=== PATIENT | male | born 1945 | race Caucasian/White ===

== ENCOUNTER 2018-11-19 06:00 | Day surgery (SDC) | payer MEDICARE, OTHER ==
[2018-11-18 08:47] LABS: BASOPHILS % (AUTO) 0.8 % (0-1); EOSINOPHILS # (AUTO) 0.1 X10'3 (0-0.9); EOSINOPHILS % (AUTO) 2.4 % (0-6); HEMATOCRIT 45.7 % (42.0-52.0); HEMOGLOBIN 15.2 g/dl (14.0-17.9); LYMPHOCYTES % (AUTO) 21.4 % (21-51); MEAN CORPUSCULAR HEMOGLOBIN 32.1 PG (27.0-31.0); MEAN CORPUSCULAR HGB CONC 33.4 g/dL (33.0-36.5); MEAN CORPUSCULAR VOLUME 96.2 FL (78-98); MEAN PLATELET VOLUME 8.4 FL (7.4-10.4); MONOCYTES # (AUTO) 0.4 X10'3 (0-0.9); MONOCYTES % (AUTO) 7.9 % (2-12); NEUTROPHILS # (AUTO) 3.1 X10'3 (1.8-7.7); NEUTROPHILS % (AUTO) 67.5 % (42-75); PLATELET COUNT 169 X10'3 (140-440); RED BLOOD COUNT 4.75 X10'6 (4.70-6.10); WHITE BLOOD COUNT 4.6 X10'3 (4.5-11.0)
[2018-11-18 09:01] LABS: ALBUMIN 3.5 G/DL (3.4-5.0); ANION GAP 5 (8-16); BLOOD UREA NITROGEN 18 MG/DL (7-18); BUN/CREATININE RATIO 23.7 (5.4-32.0); CALCIUM 9.2 MG/DL (8.5-10.1); CHLORIDE 108 MMOL/L (99-107); CREATININE 0.76 MG/DL (0.60-1.10); GLUCOSE 93 MG/DL (70-104); POTASSIUM 4.1 MMOL/L (3.5-5.1); SODIUM 141 MMOL/L (135-145); TOTAL CARBON DIOXIDE 28.1 MMOL/L (24-32); eGFR > 90 ML/MIN
[2018-11-18 09:06] LABS: INR 1.1 INR; PARTIAL THROMBOPLASTIN TIME 28 SECONDS (22-32)
[2018-11-19] VITALS (13 sets, daily range): BP systolic 110–142; BP diastolic 63–87
[~2018-11-19] VITALS: Ht 167.6 cm; Wt 87.8 kg
[2018-11-19] MEDS ORDERED: LIDOcaine/PRILOcaine 5gm cream TP ONE (06:15)
[2018-11-19] MEDS ORDERED: normal saline 1,000 ML IV SCH (06:20)
[2018-11-19] MEDS ORDERED: acetylcysteine 200 MG/ml 4ml vial PO PRN (06:20)
[2018-11-19] MEDS ORDERED: diphenhydrAMINE 25mg capsule PO PRN (06:20)
[2018-11-19] MEDS ORDERED: MULT1TAB74 PO (06:26)
[2018-11-19] MEDS ORDERED: CLOP75TA15 PO (06:26)
[2018-11-19] MEDS ORDERED: OMEG1CAP13 PO (06:26)
[2018-11-19] MEDS ORDERED: ASPI81TA52 PO (06:26)
[2018-11-19] MEDS ORDERED: FIBERWELL PO (06:26)
[2018-11-19] MEDS ORDERED: FLAX100031 PO (06:26)
[2018-11-19] MEDS ORDERED: ATOR80TA PO (06:26)
[2018-11-19] MEDS ORDERED: GLUC-150 PO (06:26)
[2018-11-19] MEDS ORDERED: METO50TA7 PO (06:26)
[2018-11-19] MEDS ORDERED: LORazepam 0.5 MG tablet PO ONE (06:50)
[2018-11-19] MEDS ORDERED: midazolam 2 mg/2 ml injection ONE (07:29)
[2018-11-19] MEDS ORDERED: fentaNYL/PF 50MCG/1 ML 2ML syringe ONE (07:29)
[2018-11-19] MEDS ORDERED: LIDOcaine 1% (10mg/ml)w/preservative injection 20ml MDV ONE (07:29)
[2018-11-19] MEDS ORDERED: verapamil 2.5 mg/ml inj IV ONE (07:29)
[2018-11-19] MEDS ORDERED: nitroGLYCERIN-Tridil 50MG/D5W 250 ML IV ONE (07:29)
[2018-11-19] MEDS ORDERED: iohexol 350 MG/ML 50ML vial IV ONE (07:30)
[2018-11-19] MEDS ORDERED: iohexol 350 MG/1 ML 200ml bottle ONE (07:30)
[2018-11-19] MEDS ORDERED: heparin 1,000unit/ml 10ml vial 10 ML ONE (07:30)
== END 2018-11-19 14:30 | disposition home or self-care (01) ==
LOC: SSTAY O 06:00
PROVIDERS: ATTEND Internal Medicine Cardiovascular Disease
DX: I25.119 Atherosclerotic heart disease of native coronary artery with unspecified angina pectoris (principal); I10 Essential (primary) hypertension; I25.2 Old myocardial infarction; E78.49 Other hyperlipidemia; N40.0 Benign prostatic hyperplasia without lower urinary tract symptoms; E66.9 Obesity, unspecified; Z68.31 Body mass index [BMI] 31.0-31.9, adult; Z79.02 Long term (current) use of antithrombotics/antiplatelets; Z95.5 Presence of coronary angioplasty implant and graft; Z79.82 Long term (current) use of aspirin; Z79.899 Other long term (current) drug therapy; Z90.49 Acquired absence of other specified parts of digestive tract; Z87.891 Personal history of nicotine dependence; Z85.828 Personal history of other malignant neoplasm of skin; Z98.890 Other specified postprocedural states
CPT/HCPCS: 36415; 80048; 85025; 85610; 85730; 93005; 93458; 99152; 99153; J1644; J2001; J2250; J3010; J7030; Q0163; Q9967; A4620; C1769; J3490

== ENCOUNTER 2025-04-27 05:31 | Day surgery (SDC) | payer MEDICARE, BC ==
[2025-04-22 14:28] LABS: MEAN PLATELET VOLUME 7.3 FL (7.4-10.4); RED CELL DISTRIBUTION WIDTH 12.7 % (11.5-14.5)
[2025-04-22 14:29] LABS: CREATININE 0.88 MG/DL (0.60-1.10); TOTAL CARBON DIOXIDE 30.6 MMOL/L (24-32); eGFR 84 ML/MIN
[~2025-04-27] VITALS: Ht 167.6 cm; Wt 75.3 kg
[2025-04-27] VITALS (7 sets, daily range): BP systolic 132–150; BP diastolic 67–85; PULSE 65–75; RESP 14–16; TEMP 97.7; O2SAT 97–100
[~2025-04-27 05:31] MED LIST: ACET-1008 PO; ASPI81TA52 PO; ATOR-429 PO; CHOL100046 PO; CLOP75TA15 PO; GLUC-150 PO; HYDR25TA4 PO; LOSA25TA41 PO; METO50TA7 PO; NITR0.4T51 SL; OMEG-167 PO; OMEG-5 PO; SPIR25TA5 PO; [UNRECOGNIZED DRUG - OTHER]
[2025-04-27] MEDS: DOCUMENT DATE & TIME OF BETA-BLOCKER PO ONE (06:15)
[2025-04-27] MEDS: ringers solution, lacted 1,000 ML IV SCH (06:15)
[2025-04-27] MEDS: ceFAZolin 2gm/dext,iso 50mL 50 ML IV ONE (06:16)
[2025-04-27] MEDS ORDERED: iohexol 300 MG/1 ML 50ml polymer ONE (06:45)
[2025-04-27] MEDS ORDERED: fentaNYL/PF 50MCG/1 ML 2ML syringe ONE (07:29)
[2025-04-27] MEDS ORDERED: midazolam 1 mg/ML 2ml injection ONE (07:42)
[2025-04-27] MEDS ORDERED: ePHEDrine 50MG/ML INJ. ONE (07:42)
[2025-04-27] MEDS ORDERED: propofol inj 20 ML IV ONE (07:42)
--- NOTE | 2025-04-27 08:01 | OPERATIVE REPORT ---
Operative Report Providers to ~ Date of Procedure: Apr 27, 2025 Pre-Operative Diagnosis: Bladder stone Post-Operative Diagnosis SAME as PRE-Op Procedure Performed Cystolitholapaxy Surgeon: Dariusz Brunner MD Sewer And Inspector None. Anesthesiologist: Abner Pineda Type of Anesthesia: General Findings: Successful cystolitholapaxy. Complications None. Estimated Blood Loss: None. Specimen Removed: Bladder stone fragments for discard only. Description of Procedure: The patient was under the effects of general anesthesia and in dorsal lithotomy with his genitals prepped and draped in sterile fashion. The urethra was entered with a 26 Amharic continuous flow scope and we appreciated a well resected prostate fossa, a patent bladder neck, and a medium size stone dependently within the bladder. The stone measured at least 2.5 cm. Using lase r energy the stone was broken into several smaller pieces which were then successfully evacuated through our continuous flow sheath. We then removed our scope from the bladder marking the end of the procedure. DARIUSZ BRUNNER MD Apr 27, 2025 08:01
== END 2025-04-27 08:50 | disposition home or self-care (01) ==
LOC: PAS 05:31
PROVIDERS: ATTEND Urology
DX: N21.0 Calculus in bladder (principal); I10 Essential (primary) hypertension; I25.10 Atherosclerotic heart disease of native coronary artery without angina pectoris; I42.9 Cardiomyopathy, unspecified; I25.2 Old myocardial infarction; Z87.891 Personal history of nicotine dependence; Z79.01 Long term (current) use of anticoagulants; Z79.82 Long term (current) use of aspirin; Z79.899 Other long term (current) drug therapy; Z90.49 Acquired absence of other specified parts of digestive tract; Z98.890 Other specified postprocedural states
CPT/HCPCS: 36415; 52317; 80053; 82948; 85025; A4618; C1758; C1769; J2250; J2704; J3010; J3490; J7030; J7120; Q9967; Z7506; Z7512; Z7610; 76000